=== PATIENT | male | born 1990 | race African-American/Black ===

== ENCOUNTER 2020-07-16 13:07 | Inpatient (IN) ==
[2020-07-16] MEDS ORDERED: Haloperidol Lactate 5 MG/ML VIAL IM PRN (15:07)
[2020-07-16] MEDS ORDERED: haloperidoL 5 MG TABLET PO PRN (15:07)
[2020-07-16] MEDS ORDERED: MOM Conc 10 ML UD.LIQ PO PRN (15:07)
[2020-07-16] MEDS ORDERED: Mag Hydrox/Al Hydrox/Simeth 30 ML UDC PO PRN (15:07)
[2020-07-16] MEDS ORDERED: *HR* LORazepam 1 MG TABLET PO PRN (15:07)
[2020-07-16] MEDS ORDERED: hydrOXYzine pamoate 25 MG CAPSULE PO PRN (15:07)
[2020-07-16] MEDS ORDERED: traZODone 50 MG TABLET PO PRN (15:07)
[2020-07-16] MEDS ORDERED: Acetaminophen 325 MG TABLET PO PRN (15:07)
[2020-07-16] MEDS ORDERED: *HR* LORazepam 2 MG/ML VIAL IM PRN (15:07)
[2020-07-16] MEDS: Doxycycline 100 MG CAPSULE PO SCH (20:20)
[2020-07-16] MEDS: traZODone 50 MG TABLET PO SCH (20:20)
[2020-07-16] MEDS: QUEtiapine Fumarate 100 MG TABLET PO SCH (20:20)
[2020-07-16] MEDS: QUEtiapine Fumarate 300 MG TABLET PO SCH (20:21)
[2020-07-16] MEDS ORDERED: NON-FORMULARY MEDICATION 1 EACH EACH (Quetiapine Fumarate [Seroquel] 400 MG) PO SCH (21:00)
[2020-07-17] MEDS: Doxycycline 100 MG CAPSULE PO SCH ×2 (09:05→20:41)
[2020-07-17] MEDS: QUEtiapine Fumarate 25 MG TABLET PO SCH (09:05)
[2020-07-17] MEDS: QUEtiapine Fumarate 100 MG TABLET PO SCH (20:41)
[2020-07-17] MEDS: QUEtiapine Fumarate 300 MG TABLET PO SCH (20:41)
[2020-07-17] MEDS: traZODone 50 MG TABLET PO SCH (20:41)
[2020-07-18] MEDS: QUEtiapine Fumarate 25 MG TABLET PO SCH (09:00)
[2020-07-18] MEDS: Doxycycline 100 MG CAPSULE PO SCH ×2 (09:00→20:16)
[2020-07-18] MEDS: QUEtiapine Fumarate 300 MG TABLET PO SCH (20:16)
[2020-07-18] MEDS: traZODone 50 MG TABLET PO SCH (20:16)
[2020-07-18] MEDS: QUEtiapine Fumarate 100 MG TABLET PO SCH (20:16)
[2020-07-19 08:33] VITALS: BP 118/74
[2020-07-19] MEDS: QUEtiapine Fumarate 25 MG TABLET PO SCH (08:39)
[2020-07-19] MEDS: Doxycycline 100 MG CAPSULE PO SCH (08:39)
== END 2020-07-19 12:50 | disposition home or self-care (01) | DRG 885 ==
LOC: EMEROOARM 13:07 → 1ANU 14:44
PROVIDERS: ADMIT Psychiatry & Neurology Psychiatry; ATTEND Psychiatry & Neurology Psychiatry